=== PATIENT | female | born 1965 | race Caucasian/White ===

== ENCOUNTER 2018-04-19 06:15 | Inpatient (IN) | payer BC ==
[2018-04-15 14:17] LABS: BASOPHILS % (AUTO) 0.7 % (0.0-2.0); EOSINOPHILS % (AUTO) 0.6 % (0.0-4.0); HEMATOCRIT 42.4 % (36-48); HEMOGLOBIN 14.4 g/dL (12.0-16.0); LYMPHOCYTES # (AUTO) 2.1 K/uL (1.0-5.5); LYMPHOCYTES % (AUTO) 41.6 % (20.5-51.5); MEAN CORPUSCULAR HEMOGLOBIN 32 pg (27-31); MEAN CORPUSCULAR HGB CONC 34 % (32-36); MEAN CORPUSCULAR VOLUME 94 fL (79.0-98.0); MONOCYTES # (AUTO) 0.4 K/uL (0.0-1.0); MONOCYTES % (AUTO) 7.3 % (1.7-9.3); NEUTROPHILS # (AUTO) 2.7 K/uL (1.8-7.7); NEUTROPHILS % (AUTO) 49.8 % (40.0-70.0); PLATELET COUNT (AUTO) 369 K/uL (130-430); RED BLOOD CELL COUNT(AUTO) 4.53 MIL/uL (4.2-6.2); RED CELL DISTRIBUTION WIDTH 12.5 % (9.0-15.0); WHITE BLOOD COUNT (AUTO) 5.2 K/uL (4.8-10.8)
[2018-04-15 14:26] LABS: CALCIUM 8.7 mg/dL (8.4-11.0); CREATININE 0.74 mg/dL (0.55-1.30)
[2018-04-15 14:31] LABS: INR 0.9 (0.8-1.2); PROTHROMBIN TIME 9.3 SECS (9.5-12.5)
[2018-04-15 14:47] LABS: BILIRUBIN,URINE 1+ (NEGATIVE); BLOOD, URINE NEGATIVE (NEGATIVE); CLARITY/URINE CLEAR (CLEAR); COLOR,URINE YELLOW (YELLOW); GLUCOSE,URINE NEGATIVE (NEGATIVE); KETONES,URINE NEGATIVE (NEGATIVE); LEUKOCYTE ESTERASE ,URINE NEGATIVE (NEGATIVE); NITRITE, URINE NEGATIVE (NEGATIVE); PH,URINE 5.5 (5.0-8.0); PROTEIN URINE NEGATIVE (NEGATIVE)
[~2018-04-19] VITALS: Ht 162.6 cm; Wt 70.3 kg
[2018-04-19] MEDS ORDERED: ACETAMINOPHEN 500 MG TABLET ONE (06:31)
[2018-04-19] MEDS ORDERED: oxyCODONE HCL 10 MG TAB.ER.12H PO ONE ×2 (06:32→08:00)
[2018-04-19] MEDS ORDERED: CELECOXIB 200 MG CAPSULE ONE (06:32)
[2018-04-19] MEDS ORDERED: TRANEXAMIC ACID 650 MG TABLET ONE (06:32)
[2018-04-19] MEDS ORDERED: GABAPENTIN 300 MG CAPSULE ONE (06:32)
[2018-04-19] MEDS ORDERED: CEFAZOLIN 2 GM IVPB PREMIX 50 ML IV ONE ×2 (06:37→08:00)
[2018-04-19] MEDS ORDERED: PRO40 PO (06:46)
[2018-04-19] MEDS ORDERED: PRO20 PO (06:46)
[2018-04-19] MEDS ORDERED: ATEN-166 PO (06:46)
[2018-04-19] MEDS ORDERED: PROPOFOL 200MG/ 20ML VIAL (DIPRIVAN) IV ONE (07:05)
[2018-04-19] MEDS ORDERED: fentaNYL CITRATE 250 MCG/5 ML AMP IV ONE (07:05)
[2018-04-19] MEDS ORDERED: VANCOMYCIN HCL 1000 MG/VIAL IV ONE (07:05)
[2018-04-19] MEDS ORDERED: MIDAZOLAM HCL 5 MG/5 ML VIAL IVP ONE (07:05)
[2018-04-19] MEDS ORDERED: FAMOTIDINE PF 20 MG/2 ML VIAL IVP ONE (07:05)
[2018-04-19] MEDS ORDERED: ROPIVACAINE HCL/PF 5 MG/ML 0.5% 30 ML VIAL INJ ONE (07:05)
[2018-04-19] MEDS ORDERED: NS 100 ML BAG IV ONE (07:05)
[2018-04-19] MEDS ORDERED: TRANEXAMIC ACID 1,000 MG/10 ML VIAL IV ONE (07:05)
[2018-04-19] MEDS ORDERED: ONDANSETRON HCL 4 MG/2 ML VIAL IVP ONE (07:05)
[2018-04-19] MEDS ORDERED: KETOROLAC TROMETHAMINE 30 MG VIAL IVP ONE (07:05)
[2018-04-19] MEDS ORDERED: ATROPINE SULFATE 0.4 MG/ML VIAL IVP ONE (07:05)
[2018-04-19] MEDS ORDERED: METOCLOPRAMIDE HCL 10 MG/2 ML VIAL IVP ONE (07:05)
[2018-04-19] MEDS ORDERED: LR 1,000 ML IV.SOLN IV ONE (07:05)
[2018-04-19] MEDS ORDERED: ROPIVACAINE 0.2% (NAROPIN) PF SOLUTION 100 ML BOTTLE EP ONE (07:05)
[2018-04-19] MEDS ORDERED: ROCURONIUM BROMIDE 10 MG/ML (ZEMURON) IV ONE (07:05)
[2018-04-19] MEDS ORDERED: EPINEPHrine 1 MG/ML AMP IV ONE (07:05)
[2018-04-19] MEDS ORDERED: SEVOFLURANE 15 MIN GAS INH ONE (07:05)
[2018-04-19] MEDS ORDERED: DEXAMETHASONE SOD PHOSPHATE 4 MG/ML VIAL IVP ONE (07:05)
[2018-04-19] MEDS ORDERED: MORPHINE SULFATE 10MG/10ML PF AMP EP ONE (07:05)
[2018-04-19] MEDS ORDERED: POLYMYXIN 500,000/BACIT.10,000 UNITS in NS IRR 1 L IR ONE ×2 (07:18→07:53)
[2018-04-19] MEDS ORDERED: TRANEXAMIC ACID 650 MG TABLET PO ONE (08:00)
[2018-04-19] MEDS ORDERED: NACL 0.9% 1,000 ML IV ONE (08:00)
[2018-04-19] MEDS ORDERED: ACETAMINOPHEN 500 MG TABLET PO ONE (08:00)
[2018-04-19] MEDS ORDERED: CELECOXIB 200 MG CAPSULE PO ONE (08:00)
[2018-04-19] MEDS ORDERED: GABAPENTIN 300 MG CAPSULE PO ONE (08:00)
[2018-04-19] MEDS ORDERED: LR 1,000 ML IV SCH (08:01)
[2018-04-19] MEDS ORDERED: ROPIVACAINE 0.2% 100 ML INJ SCH (08:01)
[2018-04-19] MEDS ORDERED: HYDROmorphone 1 MG INJ. 1 MG/ML AMPUL IVP PRN ×2 (08:15→12:00)
[2018-04-19] MEDS ORDERED: MEPERIDINE HCL/PF 25 MG/ML DISP.SYRIN IVP PRN (08:15)
[2018-04-19] MEDS ORDERED: HYDROmorphone 2 MG/ML VIAL IVP PRN ×2 (08:15)
[2018-04-19] MEDS ORDERED: HYDROcodone/ACETAMIN 10-325 MG TAB PO PRN ×2 (08:15)
[2018-04-19] MEDS ORDERED: FAMOTIDINE PF 20 MG/2 ML VIAL ONE (08:22)
[2018-04-19] MEDS ORDERED: ROPIVACAINE 0.2% 550 ML INJ SCH (09:32)
[2018-04-19] MEDS ORDERED: SENNOSIDES 8.6 MG TABLET PO PRN (09:45)
[2018-04-19] MEDS ORDERED: KETOROLAC TROMETHAMINE 15 MG VIAL IVP PRN ×2 (09:45)
[2018-04-19] MEDS ORDERED: ONDANSETRON HCL 4 MG/2 ML VIAL IVP PRN (09:45)
[2018-04-19] MEDS ORDERED: PROMETHAZINE HCL 25 MG/ML AMP IVP PRN (09:45)
[2018-04-19 11:01] VITALS: BP_SYST 134
[2018-04-19] MEDS: D5LR 1,000 ML IV SCH ×2 (11:16→19:32)
[2018-04-19] MEDS: CEFAZOLIN 1 GM IVPB PREMIX 50 ML IV SCH ×2 (11:47→20:39)
[2018-04-19] MEDS: oxyCODONE HCL 5 MG TABLET PO PRN ×2 (12:22→22:42)
[2018-04-19] MEDS: ACETAMINOPHEN 500 MG TABLET PO SCH ×2 (15:50→20:38)
[2018-04-19] MEDS: RIVAROXABAN 10 MG TABLET PO SCH (18:19)
[2018-04-19] MEDS ORDERED: traZODone HCL 50 MG TABLET (DESYREL) PO PRN (19:45)
[2018-04-19 20:00] VITALS: BP_SYST 107
[2018-04-19] MEDS: GABAPENTIN 300 MG CAPSULE PO SCH (20:38)
[2018-04-19] MEDS: CELECOXIB 200 MG CAPSULE PO SCH (20:39)
[2018-04-19 23:44] VITALS: BP_SYST 154
[2018-04-20] VITALS (8 sets, daily range): BP systolic 95–124
[2018-04-20] MEDS: CEFAZOLIN 1 GM IVPB PREMIX 50 ML IV SCH (04:12)
[2018-04-20] MEDS: oxyCODONE HCL 5 MG TABLET PO PRN ×4 (04:17→22:42)
[2018-04-20] MEDS: DIPHENHYDRAMINE HCL 25 MG CAPSULE PO PRN ×3 (04:17→22:39)
[2018-04-20] MEDS: D5LR 1,000 ML IV SCH ×2 (05:32→15:32)
[2018-04-20 06:52] LABS: CALCIUM 8.3 mg/dL (8.4-11.0); CREATININE 0.75 mg/dL (0.55-1.30)
[2018-04-20 07:04] LABS: BASOPHILS % (AUTO) 0.1 % (0.0-2.0); EOSINOPHILS % (AUTO) 0.1 % (0.0-4.0); HEMATOCRIT 32.6 % (36-48); HEMOGLOBIN 10.9 g/dL (12.0-16.0); LYMPHOCYTES # (AUTO) 1.2 K/uL (1.0-5.5); LYMPHOCYTES % (AUTO) 10.5 % (20.5-51.5); MEAN CORPUSCULAR HEMOGLOBIN 32 pg (27-31); MEAN CORPUSCULAR HGB CONC 34 % (32-36); MEAN CORPUSCULAR VOLUME 96 fL (79.0-98.0); MONOCYTES % (AUTO) 8.3 % (1.7-9.3); NEUTROPHILS # (AUTO) 9.5 K/uL (1.8-7.7); PLATELET COUNT (AUTO) 261 K/uL (130-430); RED BLOOD CELL COUNT(AUTO) 3.39 MIL/uL (4.2-6.2); RED CELL DISTRIBUTION WIDTH 12.5 % (9.0-15.0); WHITE BLOOD COUNT (AUTO) 11.7 K/uL (4.8-10.8)
[2018-04-20] MEDS: ACETAMINOPHEN 500 MG TABLET PO SCH ×3 (08:34→21:13)
[2018-04-20] MEDS: PANTOPRAZOLE SODIUM 40 MG TAB PO SCH (08:35)
[2018-04-20] MEDS: CELECOXIB 200 MG CAPSULE PO SCH ×2 (08:35→21:13)
[2018-04-20] MEDS: FLUoxetine HCL 20 MG CAPSULE (PROzac) PO SCH (08:35)
[2018-04-20] MEDS: ATENOLOL 25 MG TABLET(TENORMIN) PO SCH (08:36)
[2018-04-20] MEDS: RIVAROXABAN 10 MG TABLET PO SCH (17:37)
[2018-04-20] MEDS: GABAPENTIN 300 MG CAPSULE PO SCH (21:12)
[2018-04-21] MEDS: D5LR 1,000 ML IV SCH ×2 (01:32→10:35)
[2018-04-21] MEDS: oxyCODONE HCL 5 MG TABLET PO PRN ×3 (04:33→13:16)
[2018-04-21] MEDS: DIPHENHYDRAMINE HCL 25 MG CAPSULE PO PRN (04:35)
[2018-04-21 06:18] LABS: BASOPHILS # (AUTO) 0.1 K/uL (0.0-0.2); BASOPHILS % (AUTO) 1.1 % (0.0-2.0); EOSINOPHILS # (AUTO) 0.1 K/uL (0.0-0.4); EOSINOPHILS % (AUTO) 2.1 % (0.0-4.0); HEMATOCRIT 30.3 % (36-48); HEMOGLOBIN 9.9 g/dL (12.0-16.0); LYMPHOCYTES # (AUTO) 2.2 K/uL (1.0-5.5); LYMPHOCYTES % (AUTO) 30.7 % (20.5-51.5); MEAN CORPUSCULAR HEMOGLOBIN 32 pg (27-31); MEAN CORPUSCULAR HGB CONC 33 % (32-36); MEAN CORPUSCULAR VOLUME 96 fL (79.0-98.0); MONOCYTES # (AUTO) 0.8 K/uL (0.0-1.0); MONOCYTES % (AUTO) 10.6 % (1.7-9.3); NEUTROPHILS # (AUTO) 3.9 K/uL (1.8-7.7); NEUTROPHILS % (AUTO) 55.5 % (40.0-70.0); PLATELET COUNT (AUTO) 230 K/uL (130-430); RED BLOOD CELL COUNT(AUTO) 3.15 MIL/uL (4.2-6.2); RED CELL DISTRIBUTION WIDTH 12.5 % (9.0-15.0); WHITE BLOOD COUNT (AUTO) 7.1 K/uL (4.8-10.8)
[2018-04-21 06:48] LABS: CALCIUM 8.1 mg/dL (8.4-11.0); CREATININE 0.86 mg/dL (0.55-1.30); POTASSIUM 3.8 mmol/L (3.5-5.1)
[2018-04-21 08:00] VITALS: BP_SYST 135
[2018-04-21] MEDS: CELECOXIB 200 MG CAPSULE PO SCH (09:03)
[2018-04-21] MEDS: FLUoxetine HCL 20 MG CAPSULE (PROzac) PO SCH (09:04)
[2018-04-21] MEDS: PANTOPRAZOLE SODIUM 40 MG TAB PO SCH (09:04)
[2018-04-21] MEDS: ACETAMINOPHEN 500 MG TABLET PO SCH ×2 (09:04→15:03)
[2018-04-21] MEDS: ATENOLOL 25 MG TABLET(TENORMIN) PO SCH (09:04)
[2018-04-21 13:48] VITALS: BP_SYST 130
[2018-04-21] MEDS ORDERED: RIVA10TA PO (14:40)
[2018-04-21] MEDS ORDERED: PERC10 GT (14:41)
[2018-04-21] MEDS: RIVAROXABAN 10 MG TABLET PO SCH (15:06)
== END 2018-04-21 15:55 | disposition home health service (06) | DRG 470 ==
LOC: SMU 06:15 → STU 11:10
PROVIDERS: ADMIT Orthopaedic Surgery; ATTEND Orthopaedic Surgery
PROC: 0SRC0J9 Replacement of Right Knee Joint with Synthetic Substitute, Cemented, Open Approach (ICD-10-PCS; principal; 2018-04-19 07:30)
DX: M17.11 Unilateral primary osteoarthritis, right knee (principal); I10 Essential (primary) hypertension; Z87.891 Personal history of nicotine dependence; Z79.899 Other long term (current) drug therapy; Z88.5 Allergy status to narcotic agent
CPT/HCPCS: 36415; 71046-TC; 80048; 81003; 85025; 85610-TC; 85730-TC; 87081; 88304; 88305; 88311; 90656; 94010; 97039; 97110-GP; 97116-GP; 97530-GP; C1713; C1776; J0171; J0461; J0690; J1100; J1885; J2250; J2274; J2405; J2704; J2765; J2795; J3010; J3370; J3490; J7120; Q0163

== ENCOUNTER 2023-09-06 19:21 | Inpatient (IN) | payer BC ==
[~2023-09-06] VITALS: Ht 160 cm; Wt 55.3 kg
[~2023-09-06 19:21] MED LIST: ATEN-166 PO; PERC10 GT; PRO20 PO; PRO40 PO; RIVA10TA PO
[2023-09-06 19:27] VITALS: BP_SYST 105; PULSE 59; RESP 16; TEMP 98.3; O2SAT 97
[2023-09-06] MEDS ORDERED: iohexoL 350 mgI/mL, 100 ML INFUS..BTL IV ONE (20:15)
[2023-09-06 20:19] LABS: BASOPHILS % (AUTO) 0.2 % (0.0-2.0); EOSINOPHILS % (AUTO) 0.1 % (0.0-4.0); HEMATOCRIT 37.6 % (36-48); HEMOGLOBIN 13.2 g/dL (12.0-16.0); LYMPHOCYTES # (AUTO) 1.3 K/uL (1.0-5.5); LYMPHOCYTES % (AUTO) 16.2 % (20.5-51.5); MEAN CORPUSCULAR HEMOGLOBIN 34 pg (27-31); MEAN CORPUSCULAR HGB CONC 35 % (32-36); MEAN CORPUSCULAR VOLUME 98 fL (79.0-98.0); MONOCYTES # (AUTO) 0.9 K/uL (0.0-1.0); MONOCYTES % (AUTO) 10.7 % (1.7-9.3); NEUTROPHILS % (AUTO) 72.8 % (40.0-70.0); PLATELET COUNT (AUTO) 264 K/uL (130-430); RED BLOOD CELL COUNT(AUTO) 3.83 MIL/uL (4.2-6.2); RED CELL DISTRIBUTION WIDTH 12.8 % (9.0-15.0); WHITE BLOOD COUNT (AUTO) 8.3 K/uL (4.8-10.8)
[2023-09-06 20:40] LABS: ALANINE AMINOTRANSFERASE 13 U/L (12-78); ALBUMIN 3.1 g/dL (3.4-4.8); ANION GAP 13 (5-15); ASPARTATE AMINOTRANSFERASE 12 U/L (10-37); CALCIUM 8.8 mg/dL (8.4-11.0); CARBON DIOXIDE 21 mmol/L (23-29); CHLORIDE 100 mmol/L (98-107); CREATININE 1.43 mg/dL (0.55-1.30); GFR AFRICAN AMERICAN 48 mL/min (>90); GLUCOSE 105 mg/dL (74-106); POTASSIUM 3.5 mmol/L (3.5-5.1); SODIUM SERUM 134 mmol/L (136-145); TOTAL BILIRUBIN 0.7 mg/dL (0.0-1.0); UREA NITROGEN, BLOOD 30 mg/dL (8-21)
[2023-09-06 20:42] LABS: GFR NON AFRICAN-AMERICAN 40 mL/min (>90)
[2023-09-06 20:43] LABS: BILIRUBIN,DIRECT 0.2 mg/dL (0.0-0.3); LIPASE 54 U/L (16-77)
[2023-09-06] MEDS: NACL 0.9% 1,000 ML IV ONE ×2 (20:44→22:48)
[2023-09-07] MEDS: NACL 0.9% 1,000 ML IV SCH (00:02)
[2023-09-07 01:18] VITALS: BP_SYST 142; PULSE 57; RESP 16; TEMP 97.3
[2023-09-07] MEDS ORDERED: TRAZ-251 PO (05:05)
[2023-09-07 08:00] VITALS: BP_SYST 138; PULSE 63; RESP 16; TEMP 98.2; O2SAT 98
[2023-09-07] MEDS: CALCIUM CARBONATE 500 MG/ TAB.CHEW PO PRN (09:25)
[2023-09-07 10:28] VITALS: O2SAT 98
[2023-09-07] MEDS: ACETAMINOPHEN 325 MG TABLET PO PRN (10:49)
[2023-09-07] MEDS: ONDANSETRON HCL 4 MG/2 ML VIAL IVP PRN (11:02)
[2023-09-07 11:29] LABS: BASOPHILS % (AUTO) 0.4 % (0.0-2.0); EOSINOPHILS % (AUTO) 0.1 % (0.0-4.0); HEMATOCRIT 37.9 % (36-48); LYMPHOCYTES # (AUTO) 1.3 K/uL (1.0-5.5); LYMPHOCYTES % (AUTO) 21.5 % (20.5-51.5); MEAN CORPUSCULAR HEMOGLOBIN 33 pg (27-31); MEAN CORPUSCULAR HGB CONC 34 % (32-36); MEAN CORPUSCULAR VOLUME 97 fL (79.0-98.0); MONOCYTES # (AUTO) 0.6 K/uL (0.0-1.0); MONOCYTES % (AUTO) 9.9 % (1.7-9.3); NEUTROPHILS # (AUTO) 4.1 K/uL (1.8-7.7); NEUTROPHILS % (AUTO) 68.1 % (40.0-70.0); PLATELET COUNT (AUTO) 245 K/uL (130-430); RED CELL DISTRIBUTION WIDTH 13.2 % (9.0-15.0)
[2023-09-07 11:41] LABS: CALCIUM 8.6 mg/dL (8.4-11.0); CREATININE 0.75 mg/dL (0.55-1.30); POTASSIUM 3.1 mmol/L (3.5-5.1)
[2023-09-07 11:46] LABS: PHOSPHORUS 2.9 mg/dL (2.7-4.5); TOTAL BILIRUBIN 0.5 mg/dL (0.0-1.0)
[2023-09-07 12:00] VITALS: BP_SYST 158; RESP 16; TEMP 97; O2SAT 100
[2023-09-07] MEDS: THIAMINE HCL 100 MG in NS 50 ML IV ONE (13:20)
[2023-09-07] MEDS ORDERED: HYDR-3927 PO (14:51)
[2023-09-07] MEDS ORDERED: OLME20TA74 PO (14:51)
[2023-09-07] MEDS ORDERED: ATEN50TA PO (14:51)
[2023-09-07 15:18] LABS: BILIRUBIN,URINE 1+ (NEGATIVE); BLOOD, URINE NEGATIVE (NEGATIVE); CLARITY/URINE CLEAR (CLEAR); COLOR,URINE YELLOW (YELLOW); GLUCOSE,URINE NEGATIVE (NEGATIVE); KETONES,URINE 1+ (NEGATIVE); NITRITE, URINE NEGATIVE (NEGATIVE); PROTEIN URINE NEGATIVE (NEGATIVE); UROBILINOGEN,URINE 0.2 (0.2-1.0)
[2023-09-07 15:30] LABS: BACTERIA,URINE RARE /HPF (None Seen); LEUKOCYTE ESTERASE ,URINE TRACE (NEGATIVE); RBC,URINE NONE SEEN /HPF (0-3)
[2023-09-07 15:31] LABS: MUCUS,URINE 1+ /LPF (None Seen)
[2023-09-07 16:00] VITALS: BP_SYST 138; PULSE 61; RESP 16; TEMP 97.8; O2SAT 98
[2023-09-07] MEDS: POTASSIUM CHLORIDE 20 MEQ TABLET.ER PO ONE (16:25)
[2023-09-07] MEDS: PANTOPRAZOLE SODIUM 40 MG TAB PO ONE (18:48)
[2023-09-07 20:00] VITALS: BP_SYST 143; RESP 18; TEMP 98.6
[2023-09-07] MEDS: traZODone HCL 50 MG TABLET (DESYREL) PO PRN (21:37)
[2023-09-07] MEDS: SIMETHICONE 80 MG TAB.CHEW PO SCH (21:39)
[2023-09-08 00:45] VITALS: BP_SYST 148; PULSE 72; RESP 18; TEMP 98.6; O2SAT 98
[2023-09-08] MEDS ORDERED: NALOXONE HCL 0.4 MG/ML AMP (NARCAN) IVP PRN ×2 (04:15→14:30)
[2023-09-08] MEDS: HYDROcodone/ACETAMIN 10-325 MG TAB PO PRN (04:26)
[2023-09-08 04:46] LABS: BASOPHILS % (AUTO) 0.4 % (0.0-2.0); EOSINOPHILS % (AUTO) 0.8 % (0.0-4.0); HEMATOCRIT 34.1 % (36-48); HEMOGLOBIN 11.9 g/dL (12.0-16.0); LYMPHOCYTES # (AUTO) 2.2 K/uL (1.0-5.5); LYMPHOCYTES % (AUTO) 38.4 % (20.5-51.5); MEAN CORPUSCULAR HEMOGLOBIN 34 pg (27-31); MEAN CORPUSCULAR HGB CONC 35 % (32-36); MEAN CORPUSCULAR VOLUME 97 fL (79.0-98.0); MONOCYTES # (AUTO) 0.6 K/uL (0.0-1.0); MONOCYTES % (AUTO) 10.9 % (1.7-9.3); NEUTROPHILS # (AUTO) 2.8 K/uL (1.8-7.7); NEUTROPHILS % (AUTO) 49.5 % (40.0-70.0); PLATELET COUNT (AUTO) 210 K/uL (130-430); RED BLOOD CELL COUNT(AUTO) 3.51 MIL/uL (4.2-6.2); RED CELL DISTRIBUTION WIDTH 13.2 % (9.0-15.0); WHITE BLOOD COUNT (AUTO) 5.7 K/uL (4.8-10.8)
[2023-09-08 05:14] LABS: ALBUMIN 2.6 g/dL (3.4-4.8); CREATININE 0.54 mg/dL (0.55-1.30); FREE T4 (FREE THYROXINE) 1.1 ng/dL (0.6-1.6); POTASSIUM 3.4 mmol/L (3.5-5.1); THYROID STIMULATING HORMONE 0.58 uIu/mL (0.34-4.82); TOTAL BILIRUBIN 0.5 mg/dL (0.0-1.0); TOTAL PROTEIN, SERUM 5.2 g/dL (6.4-8.3)
[2023-09-08 08:00] VITALS: BP_SYST 157; PULSE 64; RESP 16; TEMP 97.7; O2SAT 100
[2023-09-08] MEDS: THIAMINE HCL 100 MG TABLET PO SCH (09:36)
[2023-09-08] MEDS: LOSARTAN POTASSIUM 50 MG TABLET (COZAAR) PO SCH (09:37)
[2023-09-08] MEDS: FOLIC ACID 1 MG TABLET PO SCH (09:37)
[2023-09-08] MEDS: FLUoxetine HCL 20 MG CAPSULE (PROzac) PO SCH (09:39)
[2023-09-08 10:54] VITALS: O2SAT 100
[2023-09-08 12:08] VITALS: BP_SYST 174; PULSE 65; RESP 16; TEMP 97; O2SAT 96
[2023-09-08] MEDS: cloNIDine HCL 0.1 MG TABLET PO PRN (12:08)
[2023-09-08] MEDS ORDERED: traZODone HCL 50 MG TABLET (DESYREL) PO PRN (14:30)
[2023-09-08] MEDS ORDERED: HYDROcodone/ACETAMIN 10-325 MG TAB PO PRN (14:30)
[2023-09-08] MEDS: POTASSIUM CHLORIDE 20 MEQ/PKT PACKET PO ONE (15:22)
[2023-09-08 15:34] VITALS: BP_SYST 134; PULSE 78; RESP 17; TEMP 96.4; O2SAT 99
[2023-09-08 16:04] VITALS: BP_SYST 134; PULSE 78; RESP 17; TEMP 96.4; O2SAT 99
[2023-09-09] MEDS ORDERED: ATENOLOL 50 MG TABLET (TENORMIN) PO SCH (09:00)
[2023-09-09] MEDS ORDERED: FLUoxetine HCL 20 MG CAPSULE (PROzac) PO SCH (09:00)
[2023-09-09] MEDS ORDERED: PANTOPRAZOLE SODIUM 40 MG TAB PO SCH (09:00)
[2023-09-09] MEDS ORDERED: OLMESARTAN MEDOXOMIL 20 MG TABLET PO SCH (09:00)
== END 2023-09-08 17:05 | disposition home or self-care (01) | DRG 640 ==
LOC: SED 19:21 → STU 23:02
PROVIDERS: ADMIT Internal Medicine; ATTEND Internal Medicine
DX: E86.0 Dehydration (principal); R57.1 Hypovolemic shock; R55 Syncope and collapse; M81.0 Age-related osteoporosis without current pathological fracture; I95.89 Other hypotension; I10 Essential (primary) hypertension; Z96.653 Presence of artificial knee joint, bilateral; Z79.899 Other long term (current) drug therapy; Z79.01 Long term (current) use of anticoagulants; Z88.5 Allergy status to narcotic agent
CPT/HCPCS: 36415; 70450-TC; 71045; 71275; 80048; 80053; 80061; 80076; 81000; 81001; 81015; 83605; 83690; 83735; 83880; 84100; 84439; 84443; 84484; 85025; 85379; 85610; 85730; 87040; 92610-GN; 93005; 93306; 96360; 97112-GP; 97116-GP; 99291; G0378; J2405; J3411; Q9967